=== PATIENT | male | born 1965 | race African-American/Black ===

== ENCOUNTER 2017-11-22 21:03 | Inpatient (IN) ==
[2017-11-22] MEDS ORDERED: PIPERACILLIN/TAZOBACTAM 3,375 MG in SODIUM CHLORIDE 0.9% 100 ML IV STA (21:49)
[2017-11-22] MEDS ORDERED: VANCOMYCIN INJ 1,000 MG in SODIUM CHLORIDE 0.9% 250 ML IV STA (21:49)
[2017-11-22 22:39] LABS: Basophils % 0.5 % (0.0-0.8); Eosinophils # 0.2 10*3/uL (0.0-0.87); Hematocrit 41.9 VOL% (42.0-52.0); Immature Granulocytes % 0.7 %; Immature Granulocytes Absolute 0.06 #; Lymphocytes # 0.7 10*3/uL (1.4-4.0); Lymphocytes % 8.8 % (21.2-54.2); Mean Corpuscular HGB Conc 33.4 GM/DL (32-36); Mean Corpuscular Hemoglobin 28 PG (27-34); Mean Platelet Volume 10.5 FL (9.6-12.0); Monocytes # 0.3 10*3/uL (0.11-0.8); Monocytes % 3.6 % (1.7-12.7); NRBC # 0.03 10*3/uL; Neutrophils # 6.8 10*3/uL (1.4-7.4); Neutrophils % 84.4 % (38.7-73.9); Platelet Count 170 T/CUMM (130-400); Red Blood Count 4.99 MC/CUMM (3.8-5.5); Red Cell Distribution Width 17.1 % (9.3-17.3); White Blood Count 8.1 T/CUMM (4-12)
[2017-11-22 22:57] LABS: Lactic Acid 0.9 MMOL/L (0.4-2.0)
[2017-11-22 22:58] LABS: Albumin 2.3 G/DL (3.4-5.0); Bilirubin,Total 0.7 MG/DL (0.2-1.0); Calcium 9.1 MG/DL (8.5-10.1); Osmolality,Calculated 275.1 MOS/KG (273-304); Potassium 5.1 MMOL/L (3.5-5.1); Total Protein 7.2 G/DL (6.4-8.3)
[2017-11-22 23:01] LABS: INR 0.9; Partial Thromboplastin Time 35.8 SECS (0-40)
[2017-11-22 23:58] LABS: Troponin I Only < 0.015 NG/ML (0.00-0.045)
[2017-11-23] MEDS ORDERED: LACTATED RINGERS 1,000 ML IV ONE (00:03)
[2017-11-23] MEDS ORDERED: ONDANSETRON 4 MG/2 ML VIAL IV PRN (00:49)
[2017-11-23] MEDS ORDERED: SODIUM CHLORIDE 0.9% 1,000 ML IV ONE ×2 (01:22→04:39)
[2017-11-23] MEDS ORDERED: VANCOMYCIN INJ 1,000 MG in SODIUM CHLORIDE 0.9% 250 ML IV ONE (02:30)
[2017-11-23] MEDS: SODIUM CHLORIDE 0.9% 1,000 ML IV SCH ×3 (03:25→18:28)
[2017-11-23 04:37] LABS: Amorphous Crystals,Urine Occasional /HPF (Few); Apearance,Urine CLEAR (Clear); Bacteria,Urine Occasional /HPF (Few); Bilirubin,Urine Negative (Negative); Blood, Urine Negative (Negative); Glucose,Urine (UA) Negative (Negative); Hyaline Casts,Urine 11 /LPF (0-3); Ketones,Urine Negative (Negative); Mucus,Urine Occasional /LPF (Occasional); Nitrite,Urine Negative (Negative); Protein,Urine Negative; RBC,Urine 1 /HPF (0-4); Urine Specific Gravity 1.023 (1.001-1.035); WBC,Urine 2 /HPF (0-6)
[2017-11-23 04:40] LABS: Urine Color Yellow (Yellow)
[2017-11-23 04:53] LABS: Basophils % 0.3 % (0.0-0.8); Eosinophils # 0.1 10*3/uL (0.0-0.87); Eosinophils % 0.7 % (0.00-10.9); Hematocrit 35.3 VOL% (42.0-52.0); Hemoglobin 12.1 GM/DL (14.0-18.0); Immature Granulocytes % 0.6 %; Immature Granulocytes Absolute 0.07 #; Lymphocytes # 0.6 10*3/uL (1.4-4.0); Lymphocytes % 5.6 % (21.2-54.2); Mean Corpuscular HGB Conc 34.3 GM/DL (32-36); Mean Corpuscular Hemoglobin 28 PG (27-34); Mean Corpuscular Volume 82.7 FL (87-102); Mean Platelet Volume 10.9 FL (9.6-12.0); Monocytes # 0.4 10*3/uL (0.11-0.8); Monocytes % 3.9 % (1.7-12.7); NRBC # 0.04 10*3/uL; Neutrophils # 9.7 10*3/uL (1.4-7.4); Neutrophils % 88.9 % (38.7-73.9); Platelet Count 139 T/CUMM (130-400); Red Blood Count 4.27 MC/CUMM (3.8-5.5); Red Cell Distribution Width 17.1 % (9.3-17.3); White Blood Count 10.9 T/CUMM (4-12)
[2017-11-23] MEDS: NOREPINEPHRINE 8 MG in SODIUM CHLORIDE 0.9% 242 ML IV PRN ×3 (05:05→18:32)
[2017-11-23 05:17] LABS: Calcium 8.1 MG/DL (8.5-10.1); Osmolality,Calculated 279.7 MOS/KG (273-304); Potassium 4.3 MMOL/L (3.5-5.1); Risk Ratio 2.53; Thyroid Stimulating Hormone 3.4 uIU/ml (0.358-3.74)
[2017-11-23] MEDS: PIPERACILLIN/TAZOBACTAM 3,375 MG in SODIUM CHLORIDE 0.9% 100 ML IV SCH ×3 (05:30→22:02)
[2017-11-23] MEDS: PANTOPRAZOLE 40 MG TABLET PO SCH (09:58)
[2017-11-23] MEDS: ENOXAPARIN 40 MG/0.4 ML SYRINGE SUBCUT SCH (09:59)
[2017-11-23] MEDS: SKIN HEALING OINT (AQUAPHOR) 50 GM TUBE TOP SCH (14:00)
[2017-11-23] MEDS: VANCOMYCIN INJ 2,500 MG in SODIUM CHLORIDE 0.9% 500 ML IV SCH (16:45)
[2017-11-23] MEDS: NOREPINEPHRINE 16 MG in SODIUM CHLORIDE 0.9% 234 ML IV PRN (23:05)
[2017-11-24] MEDS: VANCOMYCIN INJ 2,500 MG in SODIUM CHLORIDE 0.9% 500 ML IV SCH (02:22)
[2017-11-24] MEDS: SODIUM CHLORIDE 0.9% 1,000 ML IV SCH ×3 (02:29→18:34)
[2017-11-24 05:16] LABS: Basophils % 0.3 % (0.0-0.8); Eosinophils # 0.2 10*3/uL (0.0-0.87); Eosinophils % 1.4 % (0.00-10.9); Hematocrit 37.3 VOL% (42.0-52.0); Hemoglobin 12.2 GM/DL (14.0-18.0); Immature Granulocytes Absolute 0.15 #; Lymphocytes # 1.1 10*3/uL (1.4-4.0); Lymphocytes % 7.2 % (21.2-54.2); Mean Corpuscular HGB Conc 32.7 GM/DL (32-36); Mean Corpuscular Hemoglobin 28 PG (27-34); Mean Corpuscular Volume 85.6 FL (87-102); Mean Platelet Volume 11.1 FL (9.6-12.0); Monocytes # 0.5 10*3/uL (0.11-0.8); Monocytes % 3.2 % (1.7-12.7); NRBC # 0.05 10*3/uL; Neutrophils # 13.5 10*3/uL (1.4-7.4); Neutrophils % 86.9 % (38.7-73.9); Platelet Count 166 T/CUMM (130-400); Red Blood Count 4.36 MC/CUMM (3.8-5.5); Red Cell Distribution Width 17.2 % (9.3-17.3); White Blood Count 15.5 T/CUMM (4-12)
[2017-11-24 05:43] LABS: Calcium 7.6 MG/DL (8.5-10.1); Osmolality,Calculated 276.5 MOS/KG (273-304); Potassium 4.3 MMOL/L (3.5-5.1)
[2017-11-24] MEDS: PIPERACILLIN/TAZOBACTAM 3,375 MG in SODIUM CHLORIDE 0.9% 100 ML IV SCH ×3 (05:53→22:41)
[2017-11-24] MEDS: NOREPINEPHRINE 16 MG in SODIUM CHLORIDE 0.9% 234 ML IV PRN ×2 (08:50→22:43)
[2017-11-24] MEDS: SKIN HEALING OINT (AQUAPHOR) 50 GM TUBE TOP SCH (09:08)
[2017-11-24] MEDS: PANTOPRAZOLE 40 MG TABLET PO SCH (09:08)
[2017-11-24] MEDS: ENOXAPARIN 40 MG/0.4 ML SYRINGE SUBCUT SCH (09:08)
[2017-11-24] MEDS ORDERED: HYDROCORTISONE 100 MG VIAL IV ONE (14:56)
[2017-11-24] MEDS ORDERED: SODIUM CHLORIDE 0.9% 1,000 ML IV ONE (22:40)
[2017-11-24] MEDS: HYDROCORTISONE 100 MG VIAL IV SCH (23:54)
[2017-11-25] MEDS: SODIUM CHLORIDE 0.9% 1,000 ML IV SCH ×3 (02:46→18:18)
[2017-11-25 04:52] LABS: Basophils % 0.2 % (0.0-0.8); Eosinophils % 0.1 % (0.00-10.9); Hematocrit 30.2 VOL% (42.0-52.0); Immature Granulocytes % 2.3 %; Immature Granulocytes Absolute 0.33 #; Lymphocytes # 0.6 10*3/uL (1.4-4.0); Lymphocytes % 4.4 % (21.2-54.2); Mean Corpuscular HGB Conc 33.1 GM/DL (32-36); Mean Corpuscular Hemoglobin 28 PG (27-34); Mean Corpuscular Volume 85.8 FL (87-102); Mean Platelet Volume 10.9 FL (9.6-12.0); Monocytes # 0.3 10*3/uL (0.11-0.8); Monocytes % 2.2 % (1.7-12.7); NRBC # 0.06 10*3/uL; Neutrophils # 13.1 10*3/uL (1.4-7.4); Neutrophils % 90.8 % (38.7-73.9); Platelet Count 117 T/CUMM (130-400); Red Blood Count 3.52 MC/CUMM (3.8-5.5); Red Cell Distribution Width 17.5 % (9.3-17.3); White Blood Count 14.4 T/CUMM (4-12)
[2017-11-25 05:11] LABS: Hypochromasia 1+; Lymphocytes 5 % (20-55); Microcytosis 1+; Platelet Estimate Adequate; Segmented Neutrophils 93 % (50-85); Total Cells Counted 100
[2017-11-25 05:28] LABS: Calcium 7.9 MG/DL (8.5-10.1); Osmolality,Calculated 279.5 MOS/KG (273-304); Potassium 4.2 MMOL/L (3.5-5.1)
[2017-11-25] MEDS: PIPERACILLIN/TAZOBACTAM 3,375 MG in SODIUM CHLORIDE 0.9% 100 ML IV SCH ×3 (06:24→21:29)
[2017-11-25] MEDS: SKIN HEALING OINT (AQUAPHOR) 50 GM TUBE TOP SCH (08:22)
[2017-11-25] MEDS: ENOXAPARIN 40 MG/0.4 ML SYRINGE SUBCUT SCH (08:22)
[2017-11-25] MEDS: PANTOPRAZOLE 40 MG TABLET PO SCH (08:23)
[2017-11-25] MEDS: PYRIDOXINE 50 MG TABLET PO SCH (08:23)
[2017-11-25] MEDS: MULTIVITAMIN (CENTRUM) TABLET PO SCH (08:23)
[2017-11-25] MEDS: HYDROCORTISONE 100 MG VIAL IV SCH ×2 (08:23→15:51)
[2017-11-25] MEDS: ASCORBIC ACID 500 MG TABLET PO SCH (08:23)
[2017-11-25] MEDS: VITAMIN E 400 UNIT CAPSULE PO SCH (08:24)
[2017-11-25] MEDS: CYANOCOBALAMIN 100 MCG TABLET PO SCH (08:24)
[2017-11-25] MEDS: OMEGA 3 ACID ETHYL ESTERS 1 GM CAPSULE PO SCH ×2 (08:26→21:29)
[2017-11-26] MEDS: HYDROCORTISONE 100 MG VIAL IV SCH ×3 (01:04→21:26)
[2017-11-26] MEDS: SODIUM CHLORIDE 0.9% 1,000 ML IV SCH ×2 (02:04→10:10)
[2017-11-26] MEDS: SKIN HEALING OINT (AQUAPHOR) 50 GM TUBE TOP SCH ×2 (02:05→08:58)
[2017-11-26 04:45] LABS: Osmolality,Calculated 282.4 MOS/KG (273-304)
[2017-11-26] MEDS: PIPERACILLIN/TAZOBACTAM 3,375 MG in SODIUM CHLORIDE 0.9% 100 ML IV SCH (06:13)
[2017-11-26] MEDS ORDERED: VANCOMYCIN INJ 2,500 MG in SODIUM CHLORIDE 0.9% 500 ML IV PRN (08:36)
[2017-11-26] MEDS: ENOXAPARIN 40 MG/0.4 ML SYRINGE SUBCUT SCH (08:58)
[2017-11-26] MEDS: OMEGA 3 ACID ETHYL ESTERS 1 GM CAPSULE PO SCH ×2 (08:58→21:26)
[2017-11-26] MEDS: PANTOPRAZOLE 40 MG TABLET PO SCH (08:58)
[2017-11-26] MEDS: MULTIVITAMIN (CENTRUM) TABLET PO SCH (08:58)
[2017-11-26] MEDS: CYANOCOBALAMIN 100 MCG TABLET PO SCH (08:59)
[2017-11-26] MEDS: ASCORBIC ACID 500 MG TABLET PO SCH (08:59)
[2017-11-26] MEDS: PYRIDOXINE 50 MG TABLET PO SCH (08:59)
[2017-11-26] MEDS: VITAMIN E 400 UNIT CAPSULE PO SCH (08:59)
[2017-11-26] MEDS ORDERED: VANCOMYCIN INJ 2,500 MG in SODIUM CHLORIDE 0.9% 500 ML IV SCH (09:00)
[2017-11-26] MEDS: cefTRIAXone 1,000 MG in SYRINGE 1 EACH IV SCH (10:10)
[2017-11-27 04:58] LABS: Basophils % 0.3 % (0.0-0.8); Eosinophils # 0.1 10*3/uL (0.0-0.87); Eosinophils % 0.8 % (0.00-10.9); Hematocrit 25.2 VOL% (42.0-52.0); Hemoglobin 8.5 GM/DL (14.0-18.0); Immature Granulocytes % 8.8 %; Immature Granulocytes Absolute 1.16 #; Lymphocytes # 0.9 10*3/uL (1.4-4.0); Lymphocytes % 7.1 % (21.2-54.2); Mean Corpuscular HGB Conc 33.7 GM/DL (32-36); Mean Corpuscular Hemoglobin 28 PG (27-34); Mean Corpuscular Volume 84.3 FL (87-102); Mean Platelet Volume 10.9 FL (9.6-12.0); Monocytes # 0.5 10*3/uL (0.11-0.8); Monocytes % 3.6 % (1.7-12.7); NRBC # 0.05 10*3/uL; Neutrophils # 10.5 10*3/uL (1.4-7.4); Neutrophils % 79.4 % (38.7-73.9); Platelet Count 101 T/CUMM (130-400); Red Blood Count 2.99 MC/CUMM (3.8-5.5); Red Cell Distribution Width 17.4 % (9.3-17.3); White Blood Count 13.3 T/CUMM (4-12)
[2017-11-27 05:23] LABS: Osmolality,Calculated 283.4 MOS/KG (273-304)
[2017-11-27 05:46] LABS: Band Neutrophils 6 % (0-10); Lymphocytes 8 % (20-55); Metamyelocytes 2 %; Segmented Neutrophils 82 % (50-85); Total Cells Counted 100
[2017-11-27 05:47] LABS: Anisocytosis 1+; Poikilocytosis 1+
[2017-11-27] MEDS: VITAMIN E 400 UNIT CAPSULE PO SCH (09:18)
[2017-11-27] MEDS: ASCORBIC ACID 500 MG TABLET PO SCH (09:18)
[2017-11-27] MEDS: PYRIDOXINE 50 MG TABLET PO SCH (09:19)
[2017-11-27] MEDS: MULTIVITAMIN (CENTRUM) TABLET PO SCH (09:20)
[2017-11-27] MEDS: PANTOPRAZOLE 40 MG TABLET PO SCH (09:20)
[2017-11-27] MEDS: CYANOCOBALAMIN 100 MCG TABLET PO SCH (09:20)
[2017-11-27] MEDS: HYDROCORTISONE 100 MG VIAL IV SCH ×2 (09:21→20:51)
[2017-11-27] MEDS: OMEGA 3 ACID ETHYL ESTERS 1 GM CAPSULE PO SCH ×2 (09:21→20:51)
[2017-11-27] MEDS: cefTRIAXone 1,000 MG in SYRINGE 1 EACH IV SCH (09:21)
[2017-11-27] MEDS: SKIN HEALING OINT (AQUAPHOR) 50 GM TUBE TOP SCH (09:22)
[2017-11-27] MEDS: ENOXAPARIN 40 MG/0.4 ML SYRINGE SUBCUT SCH (09:22)
[2017-11-27] MEDS: traZODone 50 MG TABLET PO SCH ×2 (20:27→20:57)
[2017-11-28 04:02] LABS: Basophils % 0.3 % (0.0-0.8); Eosinophils # 0.1 10*3/uL (0.0-0.87); Eosinophils % 0.8 % (0.00-10.9); Hematocrit 26.3 VOL% (42.0-52.0); Immature Granulocytes % 11.1 %; Immature Granulocytes Absolute 1.59 #; Mean Corpuscular HGB Conc 34.2 GM/DL (32-36); Mean Corpuscular Hemoglobin 28 PG (27-34); Mean Platelet Volume 11.1 FL (9.6-12.0); Monocytes # 0.6 10*3/uL (0.11-0.8); NRBC # 0.08 10*3/uL; Neutrophils % 76.8 % (38.7-73.9); Platelet Count 113 T/CUMM (130-400); Red Blood Count 3.17 MC/CUMM (3.8-5.5); Red Cell Distribution Width 17.6 % (9.3-17.3); White Blood Count 14.3 T/CUMM (4-12)
[2017-11-28 04:32] LABS: Calcium 8.3 MG/DL (8.5-10.1); Osmolality,Calculated 281.5 MOS/KG (273-304); Potassium 3.9 MMOL/L (3.5-5.1)
[2017-11-28 04:47] LABS: Band Neutrophils 3 % (0-10); Lymphocytes 8 % (20-55); Nucleated Red Blood Cells 1 (0-5); Promyelocytes 1 %; Segmented Neutrophils 82 % (50-85); Total Cells Counted 100
[2017-11-28 04:48] LABS: Hypochromasia 1+; Microcytosis 1+; Ovalocytes Slight
[2017-11-28 04:49] LABS: Platelet Estimate Decreased
[2017-11-28] MEDS: VITAMIN E 400 UNIT CAPSULE PO SCH (10:09)
[2017-11-28] MEDS: MULTIVITAMIN (CENTRUM) TABLET PO SCH (10:09)
[2017-11-28] MEDS: CYANOCOBALAMIN 100 MCG TABLET PO SCH (10:09)
[2017-11-28] MEDS: OMEGA 3 ACID ETHYL ESTERS 1 GM CAPSULE PO SCH ×2 (10:10→22:17)
[2017-11-28] MEDS: PYRIDOXINE 50 MG TABLET PO SCH ×2 (10:10→11:28)
[2017-11-28] MEDS: PANTOPRAZOLE 40 MG TABLET PO SCH (10:10)
[2017-11-28] MEDS: ENOXAPARIN 40 MG/0.4 ML SYRINGE SUBCUT SCH (10:11)
[2017-11-28] MEDS: cefTRIAXone 1,000 MG in SYRINGE 1 EACH IV SCH (10:13)
[2017-11-28] MEDS: HYDROCORTISONE 100 MG VIAL IV SCH ×2 (10:15→22:17)
[2017-11-28] MEDS: ASCORBIC ACID 500 MG TABLET PO SCH (11:26)
[2017-11-28] MEDS: traZODone 50 MG TABLET PO SCH (22:17)
[2017-11-29 04:49] LABS: Basophils % 0.2 % (0.0-0.8); Eosinophils # 0.1 10*3/uL (0.0-0.87); Eosinophils % 0.4 % (0.00-10.9); Hematocrit 26.5 VOL% (42.0-52.0); Hemoglobin 9.2 GM/DL (14.0-18.0); Immature Granulocytes % 9.2 %; Immature Granulocytes Absolute 1.39 #; Lymphocytes # 0.7 10*3/uL (1.4-4.0); Lymphocytes % 4.9 % (21.2-54.2); Mean Corpuscular HGB Conc 34.7 GM/DL (32-36); Mean Corpuscular Hemoglobin 29 PG (27-34); Mean Corpuscular Volume 83.1 FL (87-102); Mean Platelet Volume 10.4 FL (9.6-12.0); Monocytes # 0.5 10*3/uL (0.11-0.8); Monocytes % 3.2 % (1.7-12.7); NRBC # 0.07 10*3/uL; Neutrophils # 12.5 10*3/uL (1.4-7.4); Neutrophils % 82.1 % (38.7-73.9); Platelet Count 100 T/CUMM (130-400); Red Blood Count 3.19 MC/CUMM (3.8-5.5); White Blood Count 15.2 T/CUMM (4-12)
[2017-11-29 05:23] LABS: Calcium 8.4 MG/DL (8.5-10.1); Osmolality,Calculated 281.5 MOS/KG (273-304); Potassium 4.3 MMOL/L (3.5-5.1)
[2017-11-29 05:47] LABS: Band Neutrophils 6 % (0-10); Burr Cells Slight; Hypochromasia 1+; Lymphocytes 6 % (20-55); Myelocytes 1 %; Ovalocytes Slight; Platelet Estimate Decreased; Segmented Neutrophils 85 % (50-85); Total Cells Counted 100
[2017-11-29 05:48] LABS: Microcytosis 1+
[2017-11-29] MEDS: DEXTROSE 50% 25 GM/50 ML VIAL IV PRN (07:00)
[2017-11-29] MEDS: MULTIVITAMIN (CENTRUM) TABLET PO SCH (08:13)
[2017-11-29] MEDS: CYANOCOBALAMIN 100 MCG TABLET PO SCH (08:13)
[2017-11-29] MEDS: cefTRIAXone 1,000 MG in SYRINGE 1 EACH IV SCH (08:13)
[2017-11-29] MEDS: HYDROCORTISONE 100 MG VIAL IV SCH ×2 (08:13→21:18)
[2017-11-29] MEDS: SKIN HEALING OINT (AQUAPHOR) 50 GM TUBE TOP SCH ×2 (08:14→09:43)
[2017-11-29] MEDS: OMEGA 3 ACID ETHYL ESTERS 1 GM CAPSULE PO SCH ×2 (08:14→21:18)
[2017-11-29] MEDS: ENOXAPARIN 40 MG/0.4 ML SYRINGE SUBCUT SCH (08:14)
[2017-11-29] MEDS: PANTOPRAZOLE 40 MG TABLET PO SCH (08:14)
[2017-11-29] MEDS: ASCORBIC ACID 500 MG TABLET PO SCH (08:16)
[2017-11-29] MEDS: PYRIDOXINE 50 MG TABLET PO SCH (08:16)
[2017-11-29] MEDS: VITAMIN E 400 UNIT CAPSULE PO SCH (08:16)
[2017-11-29] MEDS: amLODIPine 5 MG TABLET PO SCH (12:23)
[2017-11-29] MEDS: traZODone 50 MG TABLET PO SCH (21:18)
[2017-11-30 04:33] LABS: Basophils % 0.3 % (0.0-0.8); Eosinophils % 0.3 % (0.00-10.9); Hematocrit 28.9 VOL% (42.0-52.0); Hemoglobin 9.8 GM/DL (14.0-18.0); Immature Granulocytes Absolute 1.43 #; Lymphocytes # 0.8 10*3/uL (1.4-4.0); Lymphocytes % 5.3 % (21.2-54.2); Mean Corpuscular HGB Conc 33.9 GM/DL (32-36); Mean Corpuscular Hemoglobin 29 PG (27-34); Mean Platelet Volume 11.1 FL (9.6-12.0); Monocytes # 0.4 10*3/uL (0.11-0.8); Monocytes % 2.2 % (1.7-12.7); NRBC # 0.11 10*3/uL; Neutrophils # 13.2 10*3/uL (1.4-7.4); Neutrophils % 82.9 % (38.7-73.9); Platelet Count 113 T/CUMM (130-400); Red Cell Distribution Width 18.2 % (9.3-17.3); White Blood Count 15.9 T/CUMM (4-12)
[2017-11-30 04:49] LABS: Osmolality,Calculated 279.7 MOS/KG (273-304); Potassium 4.8 MMOL/L (3.5-5.1)
[2017-11-30 04:53] LABS: Band Neutrophils 4 % (0-10); Hypochromasia 1+; Lymphocytes 4 % (20-55); Platelet Estimate Decreased; Segmented Neutrophils 91 % (50-85); Total Cells Counted 100
[2017-11-30 04:54] LABS: Microcytosis 1+
[2017-11-30] MEDS: cefTRIAXone 1,000 MG in SYRINGE 1 EACH IV SCH (08:21)
[2017-11-30] MEDS: SKIN HEALING OINT (AQUAPHOR) 50 GM TUBE TOP SCH (08:21)
[2017-11-30] MEDS: ENOXAPARIN 40 MG/0.4 ML SYRINGE SUBCUT SCH (08:21)
[2017-11-30] MEDS: HYDROCORTISONE 100 MG VIAL IV SCH (08:21)
[2017-11-30] MEDS: PYRIDOXINE 50 MG TABLET PO SCH (08:22)
[2017-11-30] MEDS: PANTOPRAZOLE 40 MG TABLET PO SCH (08:22)
[2017-11-30] MEDS: CYANOCOBALAMIN 100 MCG TABLET PO SCH (08:22)
[2017-11-30] MEDS: MULTIVITAMIN (CENTRUM) TABLET PO SCH (08:22)
[2017-11-30] MEDS: VITAMIN E 400 UNIT CAPSULE PO SCH (08:22)
[2017-11-30] MEDS: amLODIPine 5 MG TABLET PO SCH (08:22)
[2017-11-30] MEDS: ASCORBIC ACID 500 MG TABLET PO SCH (08:22)
[2017-11-30] MEDS: OMEGA 3 ACID ETHYL ESTERS 1 GM CAPSULE PO SCH ×2 (08:22→20:55)
[2017-11-30] MEDS: DEXTROSE 5% NACL 0.45% 1,000 ML IV SCH ×2 (14:59→19:19)
[2017-11-30 15:28] LABS: ABG Base Excess -7.7 MMOL/L (-2.5-2.5); ABG HCO3 18.1 MMOL/L (20-26); ABG Oxygen Saturation 93.9 % (95-100); ABG PCO2 35.8 MM HG (35-48); ABG PH 7.308 (7.35-7.45); ABG PO2 71.8 MM HG (80-95); ABG TCO2 16.7 MMOL/L (23-27); Allen Test Positive; Pt O2 Delivery Device Room Air
[2017-11-30] MEDS: traZODone 50 MG TABLET PO SCH (20:55)
[2017-12-01] MEDS: ASCORBIC ACID 500 MG TABLET PO SCH (08:37)
[2017-12-01] MEDS: MULTIVITAMIN (CENTRUM) TABLET PO SCH (08:37)
[2017-12-01] MEDS: OMEGA 3 ACID ETHYL ESTERS 1 GM CAPSULE PO SCH ×2 (08:37→21:33)
[2017-12-01] MEDS: PANTOPRAZOLE 40 MG TABLET PO SCH (08:37)
[2017-12-01] MEDS: VITAMIN E 400 UNIT CAPSULE PO SCH (08:37)
[2017-12-01] MEDS: CYANOCOBALAMIN 100 MCG TABLET PO SCH (08:37)
[2017-12-01] MEDS: cefTRIAXone 1,000 MG in SYRINGE 1 EACH IV SCH (08:38)
[2017-12-01] MEDS: SKIN HEALING OINT (AQUAPHOR) 50 GM TUBE TOP SCH (08:38)
[2017-12-01] MEDS: HYDROCORTISONE 100 MG VIAL IV SCH (08:38)
[2017-12-01] MEDS: amLODIPine 5 MG TABLET PO SCH (08:38)
[2017-12-01] MEDS: ENOXAPARIN 40 MG/0.4 ML SYRINGE SUBCUT SCH (08:38)
[2017-12-01] MEDS: DEXTROSE 5% NACL 0.45% 1,000 ML IV SCH (08:39)
[2017-12-01] MEDS: PYRIDOXINE 50 MG TABLET PO SCH (08:39)
[2017-12-01 18:55] LABS: Apearance,Urine CLOUDY (Clear); Bacteria,Urine Occasional /HPF (Few); Bilirubin,Urine Negative (Negative); Blood, Urine Small mg/dL (Negative); Glucose,Urine (UA) Negative (Negative); Hyaline Casts,Urine 8 /LPF (0-3); Ketones,Urine 5 mg/dL (Negative); Mucus,Urine Moderate /LPF (Occasional); Nitrite,Urine Negative (Negative); Protein,Urine Negative; RBC,Urine 29 /HPF (0-4); Squamous Epithelial Cell,Urine Occasional /HPF (0-10); Urine Color Yellow (Yellow); Urine Specific Gravity 1.006 (1.001-1.035); Urine Urobilinogen < 2.0 EU/DL (0.2-1.0); WBC,Urine 94 /HPF (0-6)
[2017-12-01] MEDS: traZODone 50 MG TABLET PO SCH (21:33)
[2017-12-02 05:56] LABS: Basophils % 0.2 % (0.0-0.8); Eosinophils # 0.2 10*3/uL (0.0-0.87); Eosinophils % 1.3 % (0.00-10.9); Hematocrit 23.8 VOL% (42.0-52.0); Hemoglobin 8.2 GM/DL (14.0-18.0); Immature Granulocytes % 5.7 %; Lymphocytes # 0.8 10*3/uL (1.4-4.0); Lymphocytes % 6.6 % (21.2-54.2); Mean Corpuscular HGB Conc 34.5 GM/DL (32-36); Mean Corpuscular Hemoglobin 29 PG (27-34); Mean Corpuscular Volume 82.9 FL (87-102); Mean Platelet Volume 10.8 FL (9.6-12.0); Monocytes # 0.6 10*3/uL (0.11-0.8); Monocytes % 5.1 % (1.7-12.7); NRBC # 0.07 10*3/uL; Neutrophils # 9.9 10*3/uL (1.4-7.4); Neutrophils % 81.1 % (38.7-73.9); Platelet Count 118 T/CUMM (130-400); Red Blood Count 2.87 MC/CUMM (3.8-5.5); Red Cell Distribution Width 18.9 % (9.3-17.3); White Blood Count 12.2 T/CUMM (4-12)
[2017-12-02 06:24] LABS: Anisocytosis 1+; Band Neutrophils 9 % (0-10); Eosinophils 1 % (0-10); Lymphocytes 8 % (20-55); Metamyelocytes 1 %; Poikilocytosis 1+; Segmented Neutrophils 79 % (50-85); Total Cells Counted 100
[2017-12-02 06:25] LABS: Polychromasia Slight; Target Cells Slight
[2017-12-02 06:38] LABS: Albumin 2.1 G/DL (3.4-5.0); Bilirubin,Total 0.6 MG/DL (0.2-1.0); Calcium 8.4 MG/DL (8.5-10.1); Osmolality,Calculated 278.7 MOS/KG (273-304); Potassium 4.1 MMOL/L (3.5-5.1); Total Protein 6.1 G/DL (6.4-8.3)
[2017-12-02] MEDS: cefTRIAXone 1,000 MG in SYRINGE 1 EACH IV SCH (09:19)
[2017-12-02] MEDS: OMEGA 3 ACID ETHYL ESTERS 1 GM CAPSULE PO SCH ×2 (09:19→22:10)
[2017-12-02] MEDS: ASCORBIC ACID 500 MG TABLET PO SCH (09:19)
[2017-12-02] MEDS: amLODIPine 5 MG TABLET PO SCH (09:20)
[2017-12-02] MEDS: VITAMIN E 400 UNIT CAPSULE PO SCH (09:20)
[2017-12-02] MEDS: PYRIDOXINE 50 MG TABLET PO SCH (09:20)
[2017-12-02] MEDS: ENOXAPARIN 40 MG/0.4 ML SYRINGE SUBCUT SCH (09:21)
[2017-12-02] MEDS: SKIN HEALING OINT (AQUAPHOR) 50 GM TUBE TOP SCH (09:21)
[2017-12-02] MEDS: MULTIVITAMIN (CENTRUM) TABLET PO SCH (09:21)
[2017-12-02] MEDS: SODIUM CHLORIDE 0.45% 1,000 ML IV SCH ×2 (09:21→23:31)
[2017-12-02] MEDS: HYDROCORTISONE 100 MG VIAL IV SCH (09:22)
[2017-12-02] MEDS: PANTOPRAZOLE 40 MG TABLET PO SCH (09:22)
[2017-12-02] MEDS: CYANOCOBALAMIN 100 MCG TABLET PO SCH (10:00)
[2017-12-02] MEDS ORDERED: COSYNTROPIN 0.25 MG VIAL IV ONE (10:43)
[2017-12-02 12:53] LABS: % Iron Saturation 35.6 % (18-50)
[2017-12-02 14:03] LABS: Apearance,Urine CLOUDY (Clear); Bacteria,Urine Occasional /HPF (Few); Bilirubin,Urine Negative (Negative); Blood, Urine Negative (Negative); Glucose,Urine (UA) Negative (Negative); Ketones,Urine Negative (Negative); Mucus,Urine Occasional /LPF (Occasional); Nitrite,Urine Negative (Negative); Protein,Urine Negative; RBC,Urine 6 /HPF (0-4); Renal Epithelial Cells,Urine Occasional /HPF (<1); Squamous Epithelial Cell,Urine Occasional /HPF (0-10); Urine Color Yellow (Yellow); Urine Specific Gravity 1.005 (1.001-1.035); Urine Urobilinogen < 2.0 EU/DL (0.2-1.0); WBC,Urine 26 /HPF (0-6)
[2017-12-03 06:00] LABS: Basophils % 0.3 % (0.0-0.8); Eosinophils # 0.2 10*3/uL (0.0-0.87); Hematocrit 24.6 VOL% (42.0-52.0); Hemoglobin 8.1 GM/DL (14.0-18.0); Immature Granulocytes % 4.2 %; Immature Granulocytes Absolute 0.46 #; Lymphocytes % 8.7 % (21.2-54.2); Mean Corpuscular HGB Conc 32.9 GM/DL (32-36); Mean Corpuscular Hemoglobin 28 PG (27-34); Mean Corpuscular Volume 85.4 FL (87-102); Mean Platelet Volume 10.7 FL (9.6-12.0); Monocytes # 0.7 10*3/uL (0.11-0.8); Monocytes % 5.9 % (1.7-12.7); NRBC # 0.05 10*3/uL; Neutrophils # 8.6 10*3/uL (1.4-7.4); Neutrophils % 78.9 % (38.7-73.9); Platelet Count 141 T/CUMM (130-400); Red Blood Count 2.88 MC/CUMM (3.8-5.5); Red Cell Distribution Width 18.8 % (9.3-17.3)
[2017-12-03 06:29] LABS: Calcium 8.7 MG/DL (8.5-10.1); Osmolality,Calculated 276.8 MOS/KG (273-304); Potassium 4.6 MMOL/L (3.5-5.1)
[2017-12-03] MEDS ORDERED: DEXTROSE 5% NACL 0.45% 1,000 ML IV SCH (07:40)
[2017-12-03] MEDS: DEXTROSE 50% 25 GM/50 ML VIAL IV PRN ×3 (07:43→09:11)
[2017-12-03] MEDS ORDERED: COSYNTROPIN 0.25 MG VIAL IV ONE (08:00)
[2017-12-03] MEDS ORDERED: methylPREDNISolone SOD SUC 125 MG/2 ML VIAL ONE (09:20)
[2017-12-03] MEDS ORDERED: methylPREDNISolone SOD SUC 125 MG/2 ML VIAL IV ONE (09:20)
[2017-12-03] MEDS: cefTRIAXone 1,000 MG in SYRINGE 1 EACH IV SCH (09:30)
[2017-12-03 09:39] LABS: ABG Base Excess -2.8 MMOL/L (-2.5-2.5); ABG HCO3 22.7 MMOL/L (20-26); ABG Oxygen Saturation 97.1 % (95-100)
[2017-12-03] MEDS: DEXTROSE 10% 1,000 ML IV SCH (09:40)
[2017-12-03] MEDS: DEXTROSE 5% NACL 0.45% 1,000 ML IV SCH (11:53)
[2017-12-03] MEDS: ASCORBIC ACID 500 MG TABLET PO SCH (12:27)
[2017-12-03] MEDS: OMEGA 3 ACID ETHYL ESTERS 1 GM CAPSULE PO SCH ×2 (12:27→20:39)
[2017-12-03] MEDS: CYANOCOBALAMIN 100 MCG TABLET PO SCH (12:28)
[2017-12-03] MEDS: VITAMIN E 400 UNIT CAPSULE PO SCH (12:28)
[2017-12-03] MEDS: amLODIPine 5 MG TABLET PO SCH (12:28)
[2017-12-03] MEDS: MULTIVITAMIN (CENTRUM) TABLET PO SCH (12:28)
[2017-12-03] MEDS: PYRIDOXINE 50 MG TABLET PO SCH (12:28)
[2017-12-03] MEDS: PANTOPRAZOLE 40 MG TABLET PO SCH (12:28)
[2017-12-03] MEDS: ENOXAPARIN 40 MG/0.4 ML SYRINGE SUBCUT SCH (12:29)
[2017-12-03] MEDS: SKIN HEALING OINT (AQUAPHOR) 50 GM TUBE TOP SCH (14:10)
[2017-12-04] MEDS: DEXTROSE 10% 1,000 ML IV SCH ×2 (00:24→13:34)
[2017-12-04 06:36] LABS: Calcium 8.3 MG/DL (8.5-10.1); Osmolality,Calculated 282.7 MOS/KG (273-304); Potassium 4.8 MMOL/L (3.5-5.1)
[2017-12-04] MEDS: VITAMIN E 400 UNIT CAPSULE PO SCH (08:27)
[2017-12-04] MEDS: PANTOPRAZOLE 40 MG TABLET PO SCH (08:27)
[2017-12-04] MEDS: amLODIPine 5 MG TABLET PO SCH (08:27)
[2017-12-04] MEDS: PYRIDOXINE 50 MG TABLET PO SCH (08:27)
[2017-12-04] MEDS: MULTIVITAMIN (CENTRUM) TABLET PO SCH (08:27)
[2017-12-04] MEDS: CYANOCOBALAMIN 100 MCG TABLET PO SCH (08:27)
[2017-12-04] MEDS: ASCORBIC ACID 500 MG TABLET PO SCH (08:27)
[2017-12-04] MEDS: cefTRIAXone 1,000 MG in SYRINGE 1 EACH IV SCH (08:28)
[2017-12-04] MEDS: ENOXAPARIN 40 MG/0.4 ML SYRINGE SUBCUT SCH (08:28)
[2017-12-04] MEDS: OMEGA 3 ACID ETHYL ESTERS 1 GM CAPSULE PO SCH ×2 (08:28→20:08)
[2017-12-04] MEDS: SKIN HEALING OINT (AQUAPHOR) 50 GM TUBE TOP SCH (08:28)
[2017-12-05 04:53] LABS: Calcium 8.7 MG/DL (8.5-10.1); Osmolality,Calculated 280.8 MOS/KG (273-304); Potassium 4.2 MMOL/L (3.5-5.1)
[2017-12-05] MEDS: OMEGA 3 ACID ETHYL ESTERS 1 GM CAPSULE PO SCH ×2 (09:22→20:12)
[2017-12-05] MEDS: VITAMIN E 400 UNIT CAPSULE PO SCH (09:22)
[2017-12-05] MEDS: amLODIPine 5 MG TABLET PO SCH (09:22)
[2017-12-05] MEDS: ASCORBIC ACID 500 MG TABLET PO SCH (09:22)
[2017-12-05] MEDS: PYRIDOXINE 50 MG TABLET PO SCH (09:22)
[2017-12-05] MEDS: MULTIVITAMIN (CENTRUM) TABLET PO SCH (09:22)
[2017-12-05] MEDS: PANTOPRAZOLE 40 MG TABLET PO SCH (09:22)
[2017-12-05] MEDS: CYANOCOBALAMIN 100 MCG TABLET PO SCH (09:22)
[2017-12-05] MEDS: ENOXAPARIN 40 MG/0.4 ML SYRINGE SUBCUT SCH (09:22)
[2017-12-05] MEDS: cefTRIAXone 1,000 MG in SYRINGE 1 EACH IV SCH (09:23)
[2017-12-05] MEDS: SKIN HEALING OINT (AQUAPHOR) 50 GM TUBE TOP SCH (09:23)
[2017-12-06 05:33] LABS: Calcium 8.7 MG/DL (8.5-10.1); Osmolality,Calculated 281.7 MOS/KG (273-304); Potassium 4.5 MMOL/L (3.5-5.1)
[2017-12-06] MEDS: SKIN HEALING OINT (AQUAPHOR) 50 GM TUBE TOP SCH (10:20)
[2017-12-06] MEDS: ASCORBIC ACID 500 MG TABLET PO SCH (10:24)
[2017-12-06] MEDS: PANTOPRAZOLE 40 MG TABLET PO SCH (10:25)
[2017-12-06] MEDS: amLODIPine 5 MG TABLET PO SCH (10:25)
[2017-12-06] MEDS: PYRIDOXINE 50 MG TABLET PO SCH (10:26)
[2017-12-06] MEDS: VITAMIN E 400 UNIT CAPSULE PO SCH (10:26)
[2017-12-06] MEDS: CYANOCOBALAMIN 100 MCG TABLET PO SCH (10:27)
[2017-12-06] MEDS: OMEGA 3 ACID ETHYL ESTERS 1 GM CAPSULE PO SCH ×2 (10:28→20:52)
[2017-12-06] MEDS: MULTIVITAMIN (CENTRUM) TABLET PO SCH (10:28)
[2017-12-06] MEDS: ENOXAPARIN 40 MG/0.4 ML SYRINGE SUBCUT SCH (10:29)
[2017-12-06] MEDS: cefTRIAXone 1,000 MG in SYRINGE 1 EACH IV SCH (10:31)
[2017-12-06] MEDS: TERAZOSIN 5 MG CAPSULE PO SCH (20:52)
[2017-12-07 05:40] LABS: Basophils % 0.3 % (0.0-0.8); Eosinophils # 0.4 10*3/uL (0.0-0.87); Eosinophils % 5.2 % (0.00-10.9); Hematocrit 21.6 VOL% (42.0-52.0); Hemoglobin 7.2 GM/DL (14.0-18.0); Immature Granulocytes % 1.4 %; Immature Granulocytes Absolute 0.11 #; Lymphocytes # 0.7 10*3/uL (1.4-4.0); Lymphocytes % 9.6 % (21.2-54.2); Mean Corpuscular HGB Conc 33.3 GM/DL (32-36); Mean Corpuscular Hemoglobin 29 PG (27-34); Mean Corpuscular Volume 86.4 FL (87-102); Monocytes # 0.8 10*3/uL (0.11-0.8); Monocytes % 10.6 % (1.7-12.7); Neutrophils # 5.6 10*3/uL (1.4-7.4); Neutrophils % 72.9 % (38.7-73.9); Platelet Count 248 T/CUMM (130-400); Red Cell Distribution Width 19.4 % (9.3-17.3); White Blood Count 7.7 T/CUMM (4-12)
[2017-12-07 06:02] LABS: Calcium 8.5 MG/DL (8.5-10.1); Osmolality,Calculated 282.5 MOS/KG (273-304); Potassium 4.4 MMOL/L (3.5-5.1)
[2017-12-07] MEDS: MULTIVITAMIN (CENTRUM) TABLET PO SCH (09:09)
[2017-12-07] MEDS: CYANOCOBALAMIN 100 MCG TABLET PO SCH (09:09)
[2017-12-07] MEDS: PYRIDOXINE 50 MG TABLET PO SCH (09:09)
[2017-12-07] MEDS: PANTOPRAZOLE 40 MG TABLET PO SCH (09:09)
[2017-12-07] MEDS: ASCORBIC ACID 500 MG TABLET PO SCH (09:10)
[2017-12-07] MEDS: VITAMIN E 400 UNIT CAPSULE PO SCH (09:10)
[2017-12-07] MEDS: amLODIPine 10 MG TABLET PO SCH (09:10)
[2017-12-07] MEDS: ENOXAPARIN 40 MG/0.4 ML SYRINGE SUBCUT SCH (09:10)
[2017-12-07] MEDS: OMEGA 3 ACID ETHYL ESTERS 1 GM CAPSULE PO SCH ×2 (09:16→21:13)
[2017-12-07] MEDS: SKIN HEALING OINT (AQUAPHOR) 50 GM TUBE TOP SCH (09:16)
[2017-12-07] MEDS ORDERED: SODIUM CHLORIDE 0.9% 1,000 ML IV PRN ×2 (10:41→10:42)
[2017-12-07] MEDS ORDERED: FUROSEMIDE 40 MG/4 ML VIAL IV PRN (10:42)
[2017-12-07] MEDS: TERAZOSIN 5 MG CAPSULE PO SCH (21:13)
[2017-12-08 05:46] LABS: Basophils % 0.3 % (0.0-0.8); Eosinophils # 0.3 10*3/uL (0.0-0.87); Eosinophils % 4.7 % (0.00-10.9); Hematocrit 24.5 VOL% (42.0-52.0); Hemoglobin 8.1 GM/DL (14.0-18.0); Immature Granulocytes Absolute 0.07 #; Lymphocytes # 0.9 10*3/uL (1.4-4.0); Lymphocytes % 12.9 % (21.2-54.2); Mean Corpuscular HGB Conc 33.1 GM/DL (32-36); Mean Corpuscular Hemoglobin 29 PG (27-34); Mean Corpuscular Volume 86.3 FL (87-102); Mean Platelet Volume 9.5 FL (9.6-12.0); Monocytes # 0.8 10*3/uL (0.11-0.8); Monocytes % 11.4 % (1.7-12.7); Neutrophils % 69.7 % (38.7-73.9); Platelet Count 253 T/CUMM (130-400); Red Blood Count 2.84 MC/CUMM (3.8-5.5); White Blood Count 7.2 T/CUMM (4-12)
[2017-12-08 06:00] LABS: Calcium 8.7 MG/DL (8.5-10.1); Osmolality,Calculated 284.4 MOS/KG (273-304); Potassium 4.4 MMOL/L (3.5-5.1)
[2017-12-08] MEDS: ENOXAPARIN 40 MG/0.4 ML SYRINGE SUBCUT SCH (11:40)
[2017-12-08] MEDS: ASCORBIC ACID 500 MG TABLET PO SCH (11:41)
[2017-12-08] MEDS: PYRIDOXINE 50 MG TABLET PO SCH (11:41)
[2017-12-08] MEDS: CYANOCOBALAMIN 100 MCG TABLET PO SCH (11:41)
[2017-12-08] MEDS: OMEGA 3 ACID ETHYL ESTERS 1 GM CAPSULE PO SCH ×2 (11:41→21:32)
[2017-12-08] MEDS: amLODIPine 10 MG TABLET PO SCH (11:41)
[2017-12-08] MEDS: PANTOPRAZOLE 40 MG TABLET PO SCH (11:42)
[2017-12-08] MEDS: MULTIVITAMIN (CENTRUM) TABLET PO SCH (11:42)
[2017-12-08] MEDS: VITAMIN E 400 UNIT CAPSULE PO SCH (11:42)
[2017-12-08] MEDS: SKIN HEALING OINT (AQUAPHOR) 50 GM TUBE TOP SCH (18:00)
[2017-12-08] MEDS: TERAZOSIN 5 MG CAPSULE PO SCH (21:32)
[2017-12-09 06:38] LABS: Basophils % 0.4 % (0.0-0.8); Eosinophils # 0.3 10*3/uL (0.0-0.87); Eosinophils % 4.4 % (0.00-10.9); Hematocrit 25.1 VOL% (42.0-52.0); Hemoglobin 8.1 GM/DL (14.0-18.0); Immature Granulocytes Absolute 0.07 #; Lymphocytes # 0.7 10*3/uL (1.4-4.0); Lymphocytes % 10.5 % (21.2-54.2); Mean Corpuscular HGB Conc 32.3 GM/DL (32-36); Mean Corpuscular Hemoglobin 28 PG (27-34); Mean Corpuscular Volume 86.6 FL (87-102); Mean Platelet Volume 9.4 FL (9.6-12.0); Monocytes # 0.7 10*3/uL (0.11-0.8); Monocytes % 10.2 % (1.7-12.7); Neutrophils # 5.2 10*3/uL (1.4-7.4); Neutrophils % 73.5 % (38.7-73.9); Platelet Count 266 T/CUMM (130-400); Red Cell Distribution Width 18.9 % (9.3-17.3)
[2017-12-09 07:10] LABS: Calcium 8.6 MG/DL (8.5-10.1); Osmolality,Calculated 281.7 MOS/KG (273-304); Potassium 4.2 MMOL/L (3.5-5.1)
[2017-12-09] MEDS: amLODIPine 10 MG TABLET PO SCH (09:40)
[2017-12-09] MEDS: ENOXAPARIN 40 MG/0.4 ML SYRINGE SUBCUT SCH (09:40)
[2017-12-09] MEDS: CYANOCOBALAMIN 100 MCG TABLET PO SCH (09:41)
[2017-12-09] MEDS: ASCORBIC ACID 500 MG TABLET PO SCH (09:41)
[2017-12-09] MEDS: VITAMIN E 400 UNIT CAPSULE PO SCH (09:41)
[2017-12-09] MEDS: OMEGA 3 ACID ETHYL ESTERS 1 GM CAPSULE PO SCH ×2 (09:41→20:20)
[2017-12-09] MEDS: MULTIVITAMIN (CENTRUM) TABLET PO SCH (09:41)
[2017-12-09] MEDS: PANTOPRAZOLE 40 MG TABLET PO SCH (09:41)
[2017-12-09] MEDS: PYRIDOXINE 50 MG TABLET PO SCH (09:41)
[2017-12-09] MEDS: SKIN HEALING OINT (AQUAPHOR) 50 GM TUBE TOP SCH (15:30)
[2017-12-09] MEDS: TERAZOSIN 5 MG CAPSULE PO SCH (20:20)
[2017-12-10] MEDS: amLODIPine 10 MG TABLET PO SCH (09:00)
[2017-12-10] MEDS: MULTIVITAMIN (CENTRUM) TABLET PO SCH (09:00)
[2017-12-10] MEDS: ENOXAPARIN 40 MG/0.4 ML SYRINGE SUBCUT SCH (09:00)
[2017-12-10] MEDS: OMEGA 3 ACID ETHYL ESTERS 1 GM CAPSULE PO SCH (09:00)
[2017-12-10] MEDS: CYANOCOBALAMIN 100 MCG TABLET PO SCH (09:01)
[2017-12-10] MEDS: PYRIDOXINE 50 MG TABLET PO SCH (09:01)
[2017-12-10] MEDS: ASCORBIC ACID 500 MG TABLET PO SCH (09:01)
[2017-12-10] MEDS: PANTOPRAZOLE 40 MG TABLET PO SCH (09:01)
[2017-12-10] MEDS: VITAMIN E 400 UNIT CAPSULE PO SCH (09:51)
[2017-12-10] MEDS: SKIN HEALING OINT (AQUAPHOR) 50 GM TUBE TOP SCH (11:05)
[2017-12-10 12:29] VITALS: BP 151/73
== END 2017-12-10 13:40 | disposition home or self-care (01) | DRG 592 ==
LOC: EDBD → EDUNIT# → N.ED 21:03 → SUATTDRO 11-23 00:43 → N.EDINP 11-23 00:43 → N.ICU 11-23 01:42 → N.3E 11-30 17:08
PROVIDERS: ADMIT Student in an Organized Health Care Education/Training Program; ATTEND Internal Medicine